=== PATIENT | female | born 1980 ===

== ENCOUNTER 2020-11-06 12:33 | Inpatient (IN) | payer OTHER ==
[2020-11-06] MEDS ORDERED: LACTATED RINGERS 500 ML IV ONE (13:28)
--- NOTE | 2020-11-06 15:57 | Ultrasound Report ---
Limited OB Ultrasound HISTORY: john. Patient reported to be 17 weeks clinical gestational age TECHNIQUE: Grayscale and color imaging performed. COMPARISON: None FINDINGS: There is a single viable intrauterine gestation with breech presentation and heart rate of 172 bpm. The placenta is low lying and since there is essentially little to no amniotic fluid the cer vix itself is not well seen to assess for low-lying placenta versus placenta previa. IMPRESSION: Single viable intrauterine gestation as above with abnormal low amniotic fluid volume, po or visualization of the internal cervical os, and resultant low-lying placenta versus placenta previa . Signer Name: Hood Morales MD Signed: 11/06/2020 3:53 PM Workstation Name: [id number]
--- NOTE | 2020-11-06 17:15 | History and Physical Report ---
History of Present Illness Date of examination: 11/06/20 History of present illness: 40yo at 17.1 weeks. PT communicated with via phone pipe organ technician. PT here with c/o possible LOF. No pelvic pain or ctxs. No fever. Nitrazine was negative. Ultrasound today showed little to no amniotic fluid. Past History Past Medical History: no pertinent history Past Surgical History: no surgical history - Obstetrical History : 7 Para: 6 Hx # Term Pregnancies: 6 Number of Living Children: 6 Medications and Allergies Allergies Allergy/AdvReac Type Severity Reaction Status Date / Time No Known Allergies Allergy Verified 11/06/20 13:24 Review of Systems All systems: negative (except HPI) - Vital Signs Vital signs: Vital Signs Pulse Resp BP Pulse Ox 70 20 112/63 99 11/06/20 13:56 11/06/20 13:56 11/06/20 13:56 11/06/20 13:56 Temp Pulse Resp BP Pulse Ox 98 F 73 20 112/63 98 11/06/20 16:41 11/06/20 14:31 11/06/20 13:56 11/06/20 13:57 11/06/20 14:31 - Physical Exam Abdomen: Positive: normal appearance, soft. Negative: tenderness Vagina: Positive: other (sterile speculum exam done. A small amount of clear fluid was noted pooled onto the speculum.) Results All other labs normal. Assessment and Plan - Patient Problems (1) premature rupture of membranes (PPROM) with unknown onset of labor Current Visit: Yes Status: Acute Plan to address problem: Patient is at 17 weeks and 1 day with high suspicion of premature rupture membrane. The lab was called and ROM plus testing is not available yet. Her nitrazine was negative but the ultrasound findings of little to no amniotic fluid are concerning. Also the amount of fluid noted on the speculum exam was not a lot but that could also be due to the fact that the amount of amniotic fluid she has is not significant. We will start antibiotics in case she is ruptured. We will also give her IV fluids overnight and repeat the ultrasound for EVER in the morning. We will also observe her perineal pad overnight for any evidence of leakage of fluid. Plan discussed with the patient via the phone pipe organ technician. She understands and agrees to the plan. All questions were answered.
[2020-11-06] MEDS: LACTATED RINGERS 1,000 ML IV SCH (17:54)
[2020-11-06] MEDS: AMPICILLIN/NS 2 GM/100 ML 2 GM/100 ML BAG IV SCH (17:59)
[2020-11-06] MEDS ORDERED: AMPICILLIN 2 GM in SODIUM CHLORIDE 0.9% 50 ML IV SCH (18:00)
[2020-11-06] MEDS ORDERED: AZITHROMYCIN 250 MG TAB PO ONE (18:07)
[2020-11-07] MEDS: AMPICILLIN/NS 2 GM/100 ML 2 GM/100 ML BAG IV SCH ×4 (00:02→20:35)
[2020-11-07] MEDS: LACTATED RINGERS 1,000 ML IV SCH (05:42)
[2020-11-07] MEDS ORDERED: AMPICILLIN/NS 1 GM/50 ML 1 GM/50 ML BAG IV ONE (08:14)
--- NOTE | 2020-11-07 09:04 | Ultrasound Report ---
ULTRASOUND OBSTETRIC LIMITED INDICATION / CLINICAL INFORMATION: check EVER. Clinical Gestational Age (GA): 17.2 weeks.days COMPARISON: Ultrasound dated 11/06/20. FINDINGS: HEART RATE (beats per minute): 161 AMNIOTIC FLUID INDEX = Largest vertical pocket measures 0.6 cm (normal = 7-24 cm) PRESENTATION: Cephalic. ADDITIONAL FINDINGS: None. IMPRESSION: 1. Low EVER, with largest vertical pocket measuring 0.6 cm. 2. Single, living intrauterine gestation. Signer Name: Rashi Carvajal MD Signed: 11/07/2020 8:59 AM Workstation Name: [id number]
--- NOTE | 2020-11-07 12:57 | Progress Note ---
Assessment and Plan - Patient Problems (1) premature rupture of membranes (PPROM) with unknown onset of labor Current Visit: Yes Status: Acute Plan to address problem: --Patient with previable prelabor rupture of membranes at 17w1d, now 17w2d. EVER 0.6cm today AM. Spoke with [facility] Staff Dr. Singh, who recommended induction of labor given very low likelihood of getting near viable status prior to likely chorioamnoitis. No current evidence of labor or infection at this time. Also did not recommend the use of antibiotics given some studies showing no improved outcomes in the previable state. After extended conversation with patient using phone interpretation, patient decided to proceed with induction of labor today --Cytotec sublingual 25mcg q4hr prn induction of labor --D/c abx per [facility] recommendation --Anticipate Subjective - Subjective Date of service: 11/07/20 Principal diagnosis: previable premature rupture of membranes Interval history: Repeat US showing essentially anhydramnois, EVER 0.6cm. Spoke with [facility] consult Dr Singh regarding plan of care. Recommend first induction of labor given near 0% likelihood of survival at this gestation. Unlikely to make it to viability given atleast 5-6 weeks until possible viability. Discussed this versus expectant management with outpatient folow up. After >30 minutes discussion with phone header machine operator, patient decided to proceed with IOL. Patient reports: loss of fluid Objective - Vital Signs Vital Signs: Vital Signs - 12hr 11/07/20 11/07/20 07:49 07:50 Temperature 98.2 F Pulse Rate 68 68 Respiratory 16 Rate Blood Pressure 110/66 Blood Pressure 110/66 [Right] - Exam Abdomen: Present: normal appearance, normal bowel sounds FHR: auscultation normal Cervical Dilatation: 0 Uterine Contraction Pattern: Absent
[2020-11-07] MEDS ORDERED: miSOPROStol 25 MCG TAB PO PRN (14:50)
[2020-11-07] MEDS ORDERED: BUTORPHANOL 2 MG/1 ML INJ IV PRN (15:24)
[2020-11-07] MEDS ORDERED: fentaNYL 100 MCG/2 ML INJ IV PRN (15:24)
[2020-11-07] MEDS ORDERED: miSOPROStol 100 MCG TAB ONE (20:41)
[2020-11-08] MEDS: AMPICILLIN/NS 2 GM/100 ML 2 GM/100 ML BAG IV SCH ×2 (02:21→08:30)
[2020-11-08] MEDS ORDERED: miSOPROStol 200 MCG TAB PO SCH (02:30)
[2020-11-08] MEDS ORDERED: OXYTOCIN DRIP 30,000 MILLIUNITS/500 ML BAG IV ONE (03:53)
[2020-11-08] MEDS ORDERED: miSOPROStol 200 MCG TAB PR ONE (06:18)
[2020-11-08] MEDS: LACTATED RINGERS 1,000 ML IV SCH (06:21)
--- NOTE | 2020-11-08 06:33 | Procedure Note ---
OB Delivery Note - Vaginal Delivery position: OA Intrapartum events: other(please specify) (pt with no fluid u/sound, and denies SROM) Delivery induction: other (given 25mcg, then 100mcg at 4hrs then 200mcg at 6hrs) Delivery monitor: none Route of delivery: Episiotomy: none Delivery laceration: none Anesthesia: none Delivery comments: Baby delivered at 5:23am on 11/08/20, non-viable with APGARS 0/0 and EBL with clots 600cc and placenta still attached. Cytotec 600mcg placed per rectum and vitals remain within normal limits - Infant A at 1 minute: 0 at 5 minutes: 0 (Baby appears grossly normal male with large amount of clots around baby and placenta still attached; wt 152g) Gender: Male
[2020-11-08 07:29] LABS: Hematocrit 29.6 % (30.3-42.9); Hemoglobin 10.2 gm/dl (10.1-14.3); Mean Corpuscular HGB Conc 35 % (30-34); Mean Corpuscular Volume 85 fl (79-97); Platelet Count 269 K/mm3 (140-440); Red Blood Count 3.49 M/mm3 (3.65-5.03); Red Cell Distribution Width 13.8 % (13.2-15.2)
--- NOTE | 2020-11-08 09:33 | Event Note ---
Date: 11/08/20 Placenta delivered with no complications intact perineum and vagina intact, no lacerations to in stable condition Salvador Kelley MD
[2020-11-08] MEDS ORDERED: diphenhydrAMINE 25 MG CAP PO PRN (10:00)
[2020-11-08] MEDS ORDERED: HYDROcodone/ACETAMINOPHEN 5-325 MG TAB PO PRN (10:00)
[2020-11-08] MEDS ORDERED: WITCH HAZEL/ GLYCERIN PAD TP PRN (10:00)
[2020-11-08] MEDS ORDERED: LANOLIN/ZINC/DIMETHICONE (LANSINOH) 7 GM TP PRN (10:00)
[2020-11-08] MEDS ORDERED: ONDANSETRON 4 MG/2 ML INJ IV PRN (10:00)
[2020-11-08] MEDS ORDERED: PROMETHAZINE 25 MG RECT SUPP PR PRN (10:30)
[2020-11-08] MEDS ORDERED: PROMETHAZINE 25 MG TAB PO PRN (10:30)
[2020-11-08] MEDS: IBUPROFEN 600 MG TAB PO SCH (16:03)
[2020-11-08] MEDS ORDERED: miSOPROStol 100 MCG TAB PO SCH (20:30)
[2020-11-08 21:55] LABS: Hematocrit 23.7 % (30.3-42.9); Hemoglobin 8.2 gm/dl (10.1-14.3)
[2020-11-08] MEDS ORDERED: MAGNESIUM HYDROXIDE (MOM) ORAL LIQD UDC PO PRN (22:00)
[2020-11-09] MEDS: IBUPROFEN 600 MG TAB PO SCH ×4 (04:56→18:51)
--- NOTE | 2020-11-09 13:37 | Progress Note ---
Assessment and Plan A: day 1 S/P of 17 week previable . Grief process Anemia. Coronavirus positive (asymptomatic). P: Consult to case management. Oral iron supplementation. Monitor for s/sx of coronavirus. Anticipate discharge tomorrow if OK with MD. Subjective - Subjective Date of service: 11/09/20 Principal diagnosis: day 1 S/P Interval history: day 1 S/P of previable infant at 17 weeks gestation following IOL due to prelabor previable ROM and anhydramnios. Patient tested positive for coronavirus; denies cough or SOB or fever/chills. Has anemia and was started on oral iron supplementation today. Case management consult put in due to loss and grief process. Patient has no complaints today; reports vaginal bleeding is minimal. Patient reports: appetite normal, voiding normally, pain well controlled, flatus, ambulating normally, no dizzy ambulation, no nauseated : other (previable 17 week delivery) Objective - Vital Signs Latest vital signs: Vital Signs Temp Pulse Resp BP BP Pulse Ox 11/09/20 08:00 98.5 F 73 18 86/50 98 11/09/20 05:11 98.2 F 67 18 90/58 99 11/09/20 01:16 98.2 F 65 20 93/60 98 11/08/20 21:15 98.4 F 70 20 96/53 99 11/08/20 16:25 98 F 73 18 87/51 Intake and Output 11/08/20 11/09/20 11/09/20 23:59 07:59 15:59 Intake Total 580 240 Output Total 501 Balance 79 240 Intake: Oral 580 240 Output: Urine 501 Void 501 Other: Total, Intake Amount 260 240 Total, Output Amount 500 # Voids Void 1 - Exam Cardiovascular: Present: Regular rate Lungs: Present: Clear to auscultation Abdomen: Present: normal appearance, soft, distention, tenderness. Absent: guarding, rigidity Uterus: Present: normal, firm, fundal height below umbilicus. Absent: bogginess, tenderness Extremities: Present: normal. Absent: tenderness, edema - Labs Labs: Abnormal lab results 11/08/20 11/08/20 Range/Units 09:19 21:09 Hgb 8.2 L (10.1-14.3) gm/dl Hct 23.7 L (30.3-42.9) % Coronavirus (PCR) Positive A (Negative)
[2020-11-09] MEDS: FERROUS SULFATE 325 MG TAB PO SCH ×2 (18:53→23:02)
[2020-11-10] MEDS: IBUPROFEN 600 MG TAB PO SCH ×2 (05:48→10:00)
[2020-11-10] MEDS: FERROUS SULFATE 325 MG TAB PO SCH (10:00)
[2020-11-10 12:17] VITALS: BP 109/68
--- NOTE | 2020-11-10 13:32 | Progress Note ---
Assessment and Plan A: day 2 S/P of 17 week previable . loss/grief process (has been seen and evaluated by case management and cleared for discharge today). Anemia. Coronavirus positive (asymptomatic). P: Discharge patient home today. Advised patient to continue taking her vitamins and iron supplements at home. discharge instructions and warning signs discussed with patient. Advised patient to avoid intercourse, lifting, housework, driving. Advised patient to follow up at [facility] in 1 week. Advised patient to self quarantine at home to avoid spread of coronavirus. Patient voiced understanding of discharge instructions. Subjective - Subjective Date of service: 11/10/20 Principal diagnosis: day 2 S/P Interval history: day 2 S/P of previable at 17 weeks gestation following IOL due to prelabor previable ROM and anhydramnios. Patient tested positive for coronavirus; denies cough or SOB or fever/chills. Has anemia and has been taking oral iron supplements. Patient has no complaints today; reports vaginal bleeding is minimal. Patient requests to go home. Patient reports: appetite normal, voiding normally, pain well controlled, flatus, ambulating normally, no dizzy ambulation, no nauseated Objective - Vital Signs Latest vital signs: Vital Signs Temp Pulse Resp BP Pulse Ox 11/10/20 12:03 98.7 F 75 16 109/68 100 11/10/20 08:40 98.2 F 76 16 98/56 99 11/10/20 04:35 98.0 F 91 H 20 121/68 100 11/10/20 00:41 98.5 F 83 20 108/64 97 11/09/20 20:38 98.4 F 69 20 95/59 99 11/09/20 16:33 98.0 F 64 20 99/60 99 Intake and Output 11/09/20 11/10/20 11/10/20 23:59 07:59 15:59 Intake Total 120 120 Balance 120 120 Intake: Oral 120 120 Other: Total, Intake Amount 120 120 # Voids Void 1 1 1 # Bowel Movements 1 - Exam Cardiovascular: Present: Regular rate Lungs: Present: Clear to auscultation Abdomen: Present: normal appearance, soft, normal bowel sounds. Absent: distention, tenderness, guarding, rigidity Uterus: Present: normal, firm, fundal height below umbilicus. Absent: bogginess, tenderness Extremities: Present: normal. Absent: tenderness, edema
--- NOTE | 2020-11-10 13:42 | Discharge Summary ---
Providers - Providers Date of Admission: 11/08/20 09:27 Date of discharge: 11/10/20 Attending physician: MINO BAIN 11/09/20 12:49 Consult to Case Management [CONS] Routine Services Needed at Discharge: Leather Grader Additional Physician Instructions: loss; grief process Primary care physician: MINO BAIN Hospitalization Reason for admission: rupture of membranes Delivery: ( of previable infant at 17 weeks gestation) Episiotomy: none Other procedures: none complications: other (coronavirus positive (asymptomatic)) Discharge diagnosis: delivery Pertinent studies: Labs, ultrasound Hospital course: Stable hospital course. Has seen case management and has been cleared for discharge today. Condition at discharge: Good Disposition: DC-01 TO HOME OR SELFCARE - Discharge Diagnoses (1) delivery Status: Acute Plan - Provider Discharge Summary Activity: routine, no sex for 6 weeks, no heavy lifting 4 weeks, no strenuous exercise Diet: routine Instructions: routine Additional instructions: Continue taking your vitamins and iron supplements at home. Follow up at [facility] in 1 week. Self quarantine at home to avoid spread of coronavirus. Call your doctor immediately for: * Fever > 100.5 * Heavy vaginal bleeding ( >1 pad per hour) * Severe persistent headache * Shortness of breath * Reddened, hot, painful area to leg or breast - Follow up plan Follow up: MINO BAIN MD [Primary Care Provider] - 7 Days Forms: [facility] Discharge Summary
== END 2020-11-10 14:30 | disposition home or self-care (01) | DRG 805 ==
LOC: TRG 12:33 → APU 12:34 → TRG 13:28 → LD 13:29 → APU 23:32 → OBSVTOIN 11-08 09:27 → OB 11-08 13:32
PROVIDERS: ADMIT Obstetrics & Gynecology; ATTEND Obstetrics & Gynecology
PROC: 10E0XZZ Delivery of Products of Conception, External Approach (ICD-10-PCS; principal; 2020-11-08)
DX: O42.012 Preterm premature rupture of membranes, onset of labor within 24 hours of rupture, second trimester (principal); U07.1 COVID-19; O98.52 Other viral diseases complicating childbirth; O90.81 Anemia of the puerperium; Z37.0 Single live birth; Z3A.17 17 weeks gestation of pregnancy
CPT/HCPCS: 36415; 76815; 85014; 85018; 85027; 86592; 86850; 86900; 86901; 88305; G0378; J0290; J7120; U0003